=== PATIENT | male | born 1985 ===

== ENCOUNTER 2022-02-13 17:27 | Emergency (ER) | payer BC ==
[~2022-02-13] VITALS: Ht 188 cm; Wt 124.3 kg
== END 2022-02-13 19:24 | disposition home or self-care (01) ==
LOC: ER 17:27
DX: S60.222A Contusion of left hand, initial encounter (principal); S60.212A Contusion of left wrist, initial encounter; X58.XXXA Exposure to other specified factors, initial encounter; Y93.89 Activity, other specified; Y92.828 Other wilderness area as the place of occurrence of the external cause; R60.0 Localized edema; Z20.822 Contact with and (suspected) exposure to COVID-19